=== PATIENT | female | born 1960 | race Caucasian/White ===

== ENCOUNTER 2023-02-14 09:58 | Day surgery (SDC) | payer BC ==
[~2023-02-14 09:58] MED LIST: Bupivacaine 0.5% 50 ML MDV ONE
[2023-02-14] MEDS ORDERED: Propofol 200 MG/20 ML SDV ONE ×2 (09:59→10:34)
[2023-02-14] MEDS ORDERED: fentaNYL 100 MCG/2 ML SDV ONE (09:59)
[2023-02-14] MEDS ORDERED: Midazolam 1 MG/ML 2 ML SDV ONE (09:59)
[2023-02-14 10:25] LABS: HEMATOCRIT 45.8 % (34.3-46.0); HEMOGLOBIN 15.6 g/dL (11.2-15.5); MEAN CORPUSCULAR HEMOGLOBIN 31.6 pg (31.6-35.5); MEAN CORPUSCULAR HGB CONC 34.1 g/dL (31.6-35.5); MEAN CORPUSCULAR VOLUME 92.9 fL (81.4-99.0); RED BLOOD CELL COUNT 4.93 M/uL (3.77-5.24); WHITE BLOOD CELL COUNT,WBC 7.6 K/uL (3.2-11.0)
[2023-02-14] MEDS ORDERED: Lactated Ringers 1,000 ML IV SCH (10:45)
[2023-02-14] MEDS ORDERED: Nozin Nasal Sanitizer NASBOTH ONE (10:45)
[2023-02-14] MEDS ORDERED: ceFAZolin 2 GM in Premix Bag 1 BAG IV ONE (10:45)
[2023-02-14 10:46] LABS: A/G RATIO 1.2 (1.2-2.2); ALANINE AMINOTRANSFERASE,ALT 29 U/L (12-78); ALBUMIN 4.3 g/dL (3.4-5.0); ALKALINE PHOSPHATASE 75 U/L (46-116); ANION GAP 10.2 mmol/L (5.0-14.0); ASPARTATE AMNIOTRANSFERASE,AST 23 U/L (15-37); BILIRUBIN TOTAL 0.7 mg/dL (0.2-1.0); BLOOD UREA NITROGEN,BUN 15 mg/dL (7-18); CALCIUM 8.6 mg/dL (8.5-10.1); CARBON DIOXIDE,CO2 30 mmol/L (21-32); CHLORIDE,CL 101 mmol/L (100-108); CREATININE 0.8 mg/dL (0.6-1.0); EST CRCL DRUG DOSING (CG) 59.15 mL/min; ESTIMATED GFR 84 mL/min (>60); GLUCOSE RANDOM 104 mg/dL (74-106); POTASSIUM,K 4.2 mmol/L (3.6-5.2); PROTEIN TOTAL,TP 7.8 g/dL (6.4-8.2); SODIUM,NA 137 mmol/L (140-148)
[2023-02-14] MEDS ORDERED: Scopalamine 1mg/3day Transdermal Patch TOP SCH (11:00)
[2023-02-14] MEDS ORDERED: TRANEXAMIC ACID IV ONE (11:15)
[2023-02-14] MEDS ORDERED: SODIUM CHLORIDE 0.9% IV ONE (11:15)
[2023-02-14] MEDS ORDERED: oxyCODONE 5 MG Tab PO PRN ×2 (13:20)
[2023-02-14] MEDS ORDERED: Docusate Sodium 100 MG Cap PO PRN (13:21)
[2023-02-14] MEDS ORDERED: Ketorolac 15 MG/ML SDV IVPUSH PRN (13:21)
[2023-02-14] MEDS ORDERED: Ondansetron 4 MG/2 ML SDV IVPUSH PRN (13:21)
[2023-02-14] MEDS ORDERED: Morphine 2 MG/ML SYRINGE IV PRN ×2 (13:21→16:53)
[2023-02-14] MEDS ORDERED: Magnesium Hydroxide 400 MG/5 ML Susp 30 ML Cup PO PRN (13:21)
[2023-02-14] MEDS ORDERED: Sodium Chloride 0.9% 1,000 ML IV SCH (13:30)
[2023-02-14] MEDS ORDERED: Meclizine 25 MG Tab PO PRN (13:33)
[2023-02-14] MEDS ORDERED: Dexamethasone 4 MG/ML SDV ONE (13:46)
[2023-02-14] MEDS ORDERED: Ondansetron 4 MG/2 ML SDV ONE (13:46)
[2023-02-14] MEDS ORDERED: ePHEDrine 50 MG/ML SDV ONE (13:59)
[2023-02-14] MEDS ORDERED: Lactated Ringers 1,000 ML ONE (14:40)
[2023-02-14] MEDS: SCOPOLAMINE PATCH CHECK TOP SCH (15:53)
[2023-02-14] MEDS: Acetaminophen 325 MG Tab PO SCH ×2 (16:03→20:59)
[2023-02-14] MEDS ORDERED: traMADol 50 MG Tab PO PRN (16:50)
[2023-02-14] MEDS ORDERED: Ketorolac 15 MG/ML SDV IVPUSH SCH (17:00)
[2023-02-14] MEDS: ceFAZolin 2 GM in Premix Bag 1 BAG IV SCH (20:55)
[2023-02-14] MEDS: Nozin Nasal Sanitizer NASBOTH SCH (20:56)
[2023-02-14] MEDS: Ketorolac 15 MG/ML SDV IVPUSH SCH (22:50)
[2023-02-15] MEDS: Acetaminophen 325 MG Tab PO SCH ×2 (05:12→09:54)
[2023-02-15] MEDS: Ketorolac 15 MG/ML SDV IVPUSH SCH ×2 (05:12→11:57)
[2023-02-15] MEDS: ceFAZolin 2 GM in Premix Bag 1 BAG IV SCH ×2 (05:13→13:02)
[2023-02-15 06:21] LABS: HEMATOCRIT 35.9 % (34.3-46.0); HEMOGLOBIN 11.8 g/dL (11.2-15.5); MEAN CORPUSCULAR HEMOGLOBIN 31.1 pg (31.6-35.5); MEAN CORPUSCULAR HGB CONC 32.9 g/dL (31.6-35.5); MEAN CORPUSCULAR VOLUME 94.7 fL (81.4-99.0); RED BLOOD CELL COUNT 3.79 M/uL (3.77-5.24); WHITE BLOOD CELL COUNT,WBC 11.5 K/uL (3.2-11.0)
[2023-02-15] MEDS: Nozin Nasal Sanitizer NASBOTH SCH (08:16)
[2023-02-15] MEDS: SCOPOLAMINE PATCH CHECK TOP SCH (08:18)
[2023-02-15] MEDS ORDERED: Aspirin 325 MG Tab.EC PO SCH (09:00)
[2023-02-15] MEDS ORDERED: Calcium Carbonate/Vitamin D3 1500 MG-400 Units Tab PO SCH (09:00)
[2023-02-15] MEDS ORDERED: Fish Oil/Omega-3 Fatty Acids 1 Gm Cap PO SCH (09:00)
[2023-02-15] MEDS ORDERED: Multivitamins with Iron/Calcium/Folic Acid/Minerals Tab PO SCH (09:00)
[2023-02-15] MEDS ORDERED: Cholecalciferol (Vitamin D3) 25 MCG Tab PO SCH (09:00)
== END 2023-02-15 14:20 | disposition home or self-care (01) ==
LOC: JP.SDS 09:58 → JP.MS 13:21 → JP.SDS 02-15 14:20
PROVIDERS: ATTEND Specialist
DX: M16.12 Unilateral primary osteoarthritis, left hip (principal); S73.102A Unspecified sprain of left hip, initial encounter; Z79.899 Other long term (current) drug therapy
CPT/HCPCS: 27130; 36415; 72170; 80053; 85027; 87635; 97110; 97116; 97161; 97165; 97530; 97535; A9270; C1713; C1776; J0690; J1100; J1885; J2250; J2405; J2704; J3010; J3490; J7030; J7120; U0002